=== PATIENT | male | born 1960 | race American Indian/Alaskan Native ===

== ENCOUNTER 2020-05-22 10:56 | Emergency (ER) | payer OTHER ==
[~2020-05-22] VITALS: Ht 182.9 cm; Wt 84.8 kg
[~2020-05-22 10:56] MED LIST: ANAPROX DS550 MG PO; CRESTOR10 MG PO; LISINOPRIL10 MG PO; METFORMIN HCL500 MG PO; NAPROXEN500 MG PO; NORCO 5-325 TA1 EACH PO; VICODIN 5-3001 EACH PO
[2020-05-22] MEDS ORDERED: HYDROCODON-ACE1 EA10 PO (13:43)
== END 2020-05-22 13:50 | disposition home or self-care (01) ==
LOC: ED 10:56
DX: S86.912A Strain of unspecified muscle(s) and tendon(s) at lower leg level, left leg, initial encounter (principal); W18.30XA Fall on same level, unspecified, initial encounter; E11.9 Type 2 diabetes mellitus without complications; Z91.030 Bee allergy status; Z79.899 Other long term (current) drug therapy; Z79.84 Long term (current) use of oral hypoglycemic drugs
CPT/HCPCS: 73590; 80048; 83735; 85025; 85379; 99283-25

== ENCOUNTER 2020-12-30 18:57 | Emergency (ER) | payer OTHER ==
[~2020-12-30] VITALS: Ht 180.3 cm; Wt 86.2 kg
[~2020-12-30 18:57] MED LIST changes: +HYDROCODON-ACE1 EA10 PO
[2020-12-30] MEDS ORDERED: DICLOFENAC SODI75 MG PO (19:53)
[2020-12-30] MEDS ORDERED: HYDROCODON-ACE1 EA10 PO (19:53)
== END 2020-12-30 20:24 | disposition home or self-care (01) ==
LOC: ED 18:57
DX: S83.92XA Sprain of unspecified site of left knee, initial encounter (principal); E11.9 Type 2 diabetes mellitus without complications; X58.XXXA Exposure to other specified factors, initial encounter; Z91.030 Bee allergy status
CPT/HCPCS: 73560; 99283-25

== ENCOUNTER 2021-09-27 17:54 | Emergency (ER) | payer OTHER ==
[~2021-09-27] VITALS: Ht 180.3 cm; Wt 89.8 kg
[~2021-09-27 17:54] MED LIST changes: +DICLOFENAC SODI75 MG PO; +ZESTRIL5 MG PO
--- OUTSIDE RECORDS SUMMARY | 2021-09-27 17:56 | XMS ---
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 Ting has no Care Guidelines for this patient. Ara VISIT COUNT (12 MO.) 2 [facility] Jhaveri TOTAL 2 NOTE: Visits indicate total known visits. ED/UCC VISIT TRACKING (12 MO.) 09/27/2021 17:54 [facility] TYPE: Emergency COMPLAINT: - SKIN PROBLEM 12/30/2020 18:[address] [facility] OR TYPE: Emergency COMPLAINT: - LT KNEE PAIN/NO INJURY DIAGNOSES: - Sprain of unspecified site of left knee, initial encounter - Exposure to other specified factors, initial encounter - Bee allergy status - Type 2 diabetes mellitus without complications - Pain in left knee INPATIENT VISIT TRACKING (12 MO.) No inpatient visits to display in this time frame [email or web address]
[2021-09-27] MEDS ORDERED: LIPITOR40 MG PO (18:56)
== END 2021-09-27 19:48 | disposition home or self-care (01) ==
LOC: ED 17:54
DX: S50.862A Insect bite (nonvenomous) of left forearm, initial encounter (principal); E11.9 Type 2 diabetes mellitus without complications; Z91.030 Bee allergy status; Z79.84 Long term (current) use of oral hypoglycemic drugs; Z79.899 Other long term (current) drug therapy; W57.XXXA Bitten or stung by nonvenomous insect and other nonvenomous arthropods, initial encounter
CPT/HCPCS: 99282

== ENCOUNTER 2022-03-15 16:53 | Emergency (ER) | payer OTHER ==
[~2022-03-15] VITALS: Ht 182.9 cm; Wt 90.9 kg
[~2022-03-15 16:53] MED LIST changes: +LIPITOR40 MG PO
--- OUTSIDE RECORDS SUMMARY | 2022-03-15 17:07 | XMS ---
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 CARE PROVIDERS There are no care providers on record at this time. Ting has no Care Guidelines for this patient. Ara VISIT COUNT (12 MO.) 2 JOCELYNE Jhaveri TOTAL 2 NOTE: Visits indicate total known visits. 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
[2022-03-15] MEDS ORDERED: CYCLOBENZAPRINE10 MG PO (18:24)
== END 2022-03-15 18:35 | disposition home or self-care (01) ==
LOC: ED 16:53
PROC: 3E023BZ Introduction of Anesthetic Agent into Muscle, Percutaneous Approach (ICD-10-PCS; principal; 2022-03-15)
DX: M62.838 Other muscle spasm (principal); M25.512 Pain in left shoulder; E11.9 Type 2 diabetes mellitus without complications; E78.5 Hyperlipidemia, unspecified; Z86.73 Personal history of transient ischemic attack (TIA), and cerebral infarction without residual deficits; Z91.030 Bee allergy status; Z79.899 Other long term (current) drug therapy; Z79.84 Long term (current) use of oral hypoglycemic drugs
CPT/HCPCS: 20552; 99283-25; J1100

== ENCOUNTER 2023-03-09 05:50 | Day surgery (SDC) | payer MEDICARE, OTHER ==
[~2023-03-09] VITALS: Ht 182.9 cm; Wt 86.0 kg
[~2023-03-09 05:50] MED LIST changes: +CYCLOBENZAPRINE10 MG PO
[2023-03-09 06:09] VITALS: BP 153/92
[2023-03-09] MEDS ORDERED: INVOKANA100 MG PO (06:23)
[2023-03-09] MEDS ORDERED: VITAMIN D350 MCG PO (06:24)
[2023-03-09] MEDS ORDERED: DICLOFENAC SODI75 MG PO (09:44)
[2023-03-09] MEDS ORDERED: HYDROCODON-ACE1 EA11 PO (09:44)
--- NOTE | 2023-03-09 09:55 | NUR ---
03/09/23 0955 Raquel Holliday PT TO PACU SLEEPY BUT AROUSABLE RESPONDS TO VERBAL STIMULI, DENIES PAIN AND NAUSEA.
--- NOTE | 2023-03-09 10:15 | NUR ---
PT ARRIVES TO UNIT VIA STRETCHER FROM PACU. PT IS A&O AND REPORTS NO PAIN OR NAUSEA AT THIS TIME. SURGICAL SITE DRESSING VISUALIZED W/JONI RN, SMALL AMOUNT OF RED SHADOWING. PT UNABLE TO LIFT EXTREMITY, CMS INTACT. SLING, CRYO CUFF, SCD'S IN PLACE AT THIS TIME. VS TAKEN. PT IS ON RA W/O2 >90%, GOOD COUGHS AT THIS TIME. SUGAR FREE JELLO AND DIET SODA PROVIDED, PT TOLERATING W/OUT DIFFICULTY SWALLOWING. CALL LIGHT WITHIN REACH, AT BEDSIDE, NO FURTHER NEEDS AT THIS TIME.
[2023-03-09 10:28] VITALS: BP 132/84
[2023-03-09 11:22] VITALS: BP 129/89
--- NOTE | 2023-03-09 12:09 | NUR ---
1126- PT ABLE TO SIT UP ON THE EDGE OF THE BED. PT REPORTS NO DIZZINESS, NAUSEA, OR PAIN. PT AMBULATED TO THE RESTROOM. 1131- PT ABLE TO URINATE. PT AMBULATES BACK TO HIS ROOM. PT STATES HE IS READY TO GET DRESSED TO GO HOME. PT ASSISTED WITH HIS SHIRT AND INSTRUCTED ON HOW TO ASSIST WITH PUTTING ON HIS SHIRT TO KEEP HIS LEFT SHOULDER IN A SAFE POSITION. 1142- PT FULLY DRESSED. DC INSTRUCTIONS PROVIDED TO PT AND PT'S . CRYOCUFF SENT HOME WITH PT. 1153- PT TAKEN TO THE FRONT OF THE HOSPITAL AND ASSISTED INTO THE PASSENGER SIDE OF THE VEHICLE.
--- NOTE | 2023-03-12 06:55 | OR ---
[facility] [address], [place] [address] Signed DATE OF OPERATION: 03/09/2023 SURGEON: Kia Holliday MD PREOPERATIVE DIAGNOSIS: Left shoulder biceps and labral tear. POSTOPERATIVE DIAGNOSES: 1. Left shoulder biceps and labral tear. 2. Partial rotator cuff tear. PROCEDURE PERFORMED: Left shoulder arthroscopy with subacromial decompression and debridement. TIRE RECAPPER: None. ANESTHESIA: General. BLOOD LOSS: Minimal. BRIEF HISTORY: Yasmany is a 62-year-old gentleman, who has had persistent shoulder pain despite nonoperative treatment including injections and physical therapy. The risks, benefits, and alternatives of surgery were discussed with him and he elected to proceed. DESCRIPTION OF PROCEDURE: Once consent was obtained, he was taken to the operating room. After adequate anesthesia, he was placed on the operating room bed in a beach chair position. All downside pressure points were well padded. He had his shoulder prepped and draped in a standard sterile fashion. Shoulder was injected with 15 mL of 0.25% Marcaine with epinephrine as was subacromial space. The standard posterior portal was made and the scope was introduced into the shoulder. ARTHROSCOPIC FINDINGS: The shoulder showed moderate synovitis throughout the superior and anterior superior aspects of the shoulder. The glenohumeral surfaces were intact. The labrum was frayed in a type 1 SLAP pattern with an unstable fragment anterior superiorly. The biceps Electronically Signed By: KAI HOLLIDAY MD 03/12/23 0655 PATIENT NAME: YASMANY MORALES OPERATIVE REPORT DATE OF : 62 REPORT #: [id number] PHYSICIAN: KAI HOLLIDAY MD PCP: MILTON SIMON REPORT IS CONFIDENTIAL AND NOT TO BE RELEASED WITHOUT AUTHORIZATION [facility] [address] [facility] [place], [place] [address] Signed anchor itself was intact. The biceps showed a 20% tear 3 cm from its attachment to the glenoid. There was very little tenosynovitis. The subacromial space showed mild thickening and bursitis but no superior rotator cuff tear. The undersurface of the supraspinatus just posterior to the biceps did show a minor tear. DESCRIPTION OF OPERATION: Standard anterior portal was made and diagnostic arthroscopy was undertaken as noted above. The biceps tissue was debrided as was the undersurface of the rotator cuff tear. The biceps was then measured to about 80% remaining. The labral attachment was intact. The fraying of the anterior labrum was then debrided. All synovitis was then debrided using the shaver. The scope was then withdrawn. Portals were closed with 3-0 nylon after brief subacromial bursoscopy. The bursa was removed using combination of the shaver and Mitek VAPR. The wounds were then dressed with Allevyn and Tegaderm. He was awakened, taken to the recovery room in satisfactory condition. All sponge, needle, and instrument counts were correct. Kai Holliday MD BA/AUGUSTOL /[id number] Copies: ~ Electronically Signed By: KAI HOLLIDAY MD 03/12/23 0655 PATIENT NAME: YASMANY MORALES OPERATIVE REPORT DATE OF : 62 REPORT #: [id number] PHYSICIAN: KAI HOLLIDAY MD PCP: MILTON SIMON REPORT IS CONFIDENTIAL AND NOT TO BE RELEASED WITHOUT AUTHORIZATION
== END 2023-03-09 11:53 | disposition home or self-care (01) ==
LOC: DS 05:50
PROVIDERS: ATTEND Specialist
PROC: 0RNK4ZZ Release Left Shoulder Joint, Percutaneous Endoscopic Approach (ICD-10-PCS; principal; 2023-03-09 08:30)
DX: S43.432A Superior glenoid labrum lesion of left shoulder, initial encounter (principal); M75.102 Unspecified rotator cuff tear or rupture of left shoulder, not specified as traumatic; M65.812 Other synovitis and tenosynovitis, left shoulder; E78.00 Pure hypercholesterolemia, unspecified; E11.9 Type 2 diabetes mellitus without complications; X58.XXXA Exposure to other specified factors, initial encounter
CPT/HCPCS: 01630; 64415; 76942; J0690; J1100; J1885; J2001; J2250; J2405; J2704; J2795; J7121

== ENCOUNTER 2024-09-08 11:14 | Inpatient (IN) | payer OTHER, MEDICARE ==
[~2024-09-08] VITALS: Ht 182.9 cm; Wt 94.7 kg
[~2024-09-08 11:14] MED LIST changes: +HYDROCODON-ACE1 EA11 PO; +INVOKANA300 MG PO; -LIPITOR40 MG PO; +LIPITOR80 MG PO; +VITAMIN D325 MCG PO
[2024-09-08] MEDS ORDERED: METFORMIN HCL1000 M2 PO (11:28)
[2024-09-08] MEDS ORDERED: JANUMET 50-1,01 EACH PO (11:29)
[2024-09-08] MEDS ORDERED: VITAMIN B121000 MCG PO (11:30)
[2024-09-08] MEDS ORDERED: GLIMEPIRIDE1 MG PO (11:31)
[2024-09-08 12:02] LABS: BASOPHILS 0.5 % (0.2-1.2); EOSINOPHILS 0.4 % (0.8-7.0); LYMPHOCYTES 5.9 % (21.8-53.1); MCH 31.2 PG (25.7-32.2); MCHC 32.8 g/dL (32.3-36.5); MCV 95.2 fL (79.0-92.2); MONOCYTES 6.8 % (5.3-12.2); NEUTROPHILS 85.9 % (34.0-67.9); RBC 4.20 M/uL (4.63-6.08)
[2024-09-08 12:22] LABS: LACTIC ACID, BLOOD 2.1 mmol/L (0.4-2.0)
[2024-09-08 12:23] LABS: ALT (SGPT) 26.0 U/L (14-59); AST (SGOT) 16.0 U/L (15-37); GLOMERULAR FILTRATION RATE,EST 101.0 mL/min (>60); PROTEIN, TOTAL 7.6 g/dL (6.4-8.2); UREA NITROGEN 9.0 mg/dL (7-18)
[2024-09-08] MEDS ORDERED: SODIUM CHLORIDE 0.9% 1,000 ML IV PRN (12:45)
[2024-09-08] MEDS ORDERED: THIAMINE HCL 200 MG/2 ML VIAL IV SCH (13:58)
[2024-09-08] MEDS ORDERED: FOLIC ACID 1 MG/0.2 ML ML IV SCH (13:58)
[2024-09-08] MEDS ORDERED: DEXTROSE 5% 1,000 ML IV PRN (14:00)
[2024-09-08] MEDS ORDERED: GLUCAGON,HUMAN RECOMBINANT 1 MG/ML VIAL SUB-Q PRN (14:00)
[2024-09-08] MEDS ORDERED: IBLOOD GLUCOSE TEST STRIP 1 EA TEST XX PRN (14:00)
[2024-09-08] MEDS ORDERED: ACETAMINOPHEN 325 MG TAB PO PRN (14:00)
[2024-09-08] MEDS ORDERED: DEXTROSE 50% 50 ML SYR IV PRN ×2 (14:00)
[2024-09-08] MEDS ORDERED: PIPERACILLIN/TAZOBACTAM 4.5 GM in SODIUM CHLORIDE 0.9% 100 ML IV SCH (14:00)
[2024-09-08] MEDS ORDERED: LORazepam 2 MG/ML VIAL IV/IM PRN (14:00)
[2024-09-08 14:03] LABS: LACTIC ACID, BLOOD 1.4 mmol/L (0.4-2.0)
[2024-09-08 14:30] VITALS: BP 137/76
--- NOTE | 2024-09-08 14:51 | NUR ---
PATIENT ADMITTED TO MED SURG. PATIENT RATES LEFT FOOT PAIN 08/14. LEFT FOOT IS ELEVATED ON 2 PILLOWS. IV ZOSYN INFUSING FOR 4 HOURS. AFTERNOON MEDS GIVEN. NO OTHER NEEDS AT THIS TIME.
[2024-09-08 15:30] VITALS: BP 137/76
[2024-09-08] MEDS ORDERED: INSULIN LISPRO 100 UNIT/ML ML SUB-Q SCH (17:00)
[2024-09-08] MEDS ORDERED: IBLOOD GLUCOSE TEST STRIP 1 EA TEST VI SCH (17:00)
[2024-09-08 17:09] LABS: BLOOD/HGB, URINE NEGATIVE (Negative); KETONE, URINE NEGATIVE (Negative); LEUK ESTERASE, URINE NEGATIVE (negative); NITRITE, URINE NEGATIVE (negative)
--- NOTE | 2024-09-08 17:18 | NUR ---
PATIENT BG IS 147, HE DOES NOT WANT THE ONE UNIT SLIDING SCALE AT THIS TIME. NO OTHER NEEDS AT THIS TIME.
[2024-09-08 17:45] VITALS: BP 119/64; BP 99/58
--- NOTE | 2024-09-08 17:49 | NUR ---
PATIENT IS LAYING IN BED. PATIENTS VITAL SIGNS AND I&OS WERE TAKEN. PATIENTS CALL LIGHT IS WITHIN REACH AND NOT FUTHER NEEDS AT THIS TIME.
[2024-09-08] MEDS ORDERED: IBUPROFEN 600 MG TAB PO PRN (19:15)
--- NOTE | 2024-09-08 19:45 | NUR ---
PT ALERT IN BED, SUPPORTIVE AND DOG AT BEDSIDE. PT RATES PAIN OF FOOT AT 6/10. CALL LIGHT IN REACH
[2024-09-08 20:12] VITALS: BP 96/56
[2024-09-08 20:19] VITALS: BP 96/56
--- NOTE | 2024-09-08 20:34 | NUR ---
VITALS, EVENING ASSESSMENT. L FOOT REDNESS AND SWELLING CONSIDERABLY IMPROVED FROM PREVIOUS MARKING, AND PER PT. GIVEN PRN MOTRIN FOR 6/10 PAIN WELL ICE PACK. ORIENTED TO PLAN OF CARE. REFRESHED ICE WATER. SUPPORTIVE AND DOG IN ROOM. CALL LIGHT IN REACH
--- NOTE | 2024-09-08 21:22 | NUR ---
GIVEN MUSTARD ON PT REQUEST FOR LEG CRAMPS. PAIN UNCHANGED AFTER MOTRIN AND ICE. NO OTHER NEEDS CALL [facility] IN REACH
--- NOTE | 2024-09-08 22:46 | NUR ---
ADMINISTERED IV ABX, BLOOD SUGAR 109. PT REPORTS PAIN MILDLY IMPROVED FROM MOTIRN, THOUGH STILL RATES 5/10. NO OTHER NEEDS PRESENTLY, SUPPORTIVE AND DOG IN BEDROOM. CALL LIGHT IN REACH
[2024-09-09] VITALS (9 sets, daily range): BP systolic 97–125; BP diastolic 56–77
--- NOTE | 2024-09-09 00:37 | NUR ---
PT RESTING IN BED WTIH EYES CLOSED, RISE ADN FALL OF CHEST OBSERVED. CALL LIGHT IN REACH
--- NOTE | 2024-09-09 02:42 | NUR ---
PT RESTING IN BED WITH EYES CLOSED, RISE AND FALL OF CHEST OBSERVED. CALL LIGHT IN REACH, SUPPORTIVE AND DOG IN ROOM.
--- NOTE | 2024-09-09 04:22 | NUR ---
PT RESTING IN BED, SAYS "I'M OKAY" WHEN OPENED DOOR. NO OTHER NEEDS, CALL [facility]
[2024-09-09 05:36] LABS: BASOPHILS 0.5 % (0.2-1.2); EOSINOPHILS 1.2 % (0.8-7.0); LYMPHOCYTES 8.2 % (21.8-53.1); MCH 32.2 PG (25.7-32.2); MCHC 33.3 g/dL (32.3-36.5); MCV 96.6 fL (79.0-92.2); MONOCYTES 8.7 % (5.3-12.2); NEUTROPHILS 80.9 % (34.0-67.9); RBC 3.79 M/uL (4.63-6.08)
[2024-09-09 05:45] LABS: GLOMERULAR FILTRATION RATE,EST 99.0 mL/min (>60); UREA NITROGEN 11.0 mg/dL (7-18)
--- NOTE | 2024-09-09 07:24 | NUR ---
MORNING REPORT RECIEVED FROM KATIE VAZQUEZ. PT SITTING UP IN BED AT THIS TIME, PT DENIES NEEDS AT THIS TIME, PT CALL LIGHT IN REACH CURRENTLY WITH SITTING IN ROOM AT PT BEDSIDE.
--- NOTE | 2024-09-09 07:32 | NUR ---
HOURLY ROUNDING. PATIENT BLOOD SUGAR WAS CHECKED AND DOCUMENTED. NO REQUEST FROM PATIENT AT THIS TIME. IS AT BEDSIDE CALL LIHT PLACED WITHIN REACH
[2024-09-09] MEDS ORDERED: MULTIVITAMINS THERAPEUTIC 1 EA TAB PO SCH (08:00)
--- NOTE | 2024-09-09 08:55 | NUR ---
UR CLINICAL REVIEW: FRANCIS, MEETS INPT FOR CELLULITIS IV ANTIBIOTICS Q 8 HRS, TREND LABS, ELEVATED LACTIC ACID 2.1, WOUND PACKING IN PLACE WITH NEED TO MONITOR SITE, PT CONSULT [facility]/MEDICARE INPT 09/08/24 @ 1353 ORDER MATCHES REG NO AUTH NEEDED PER MEDICARE RULES PLAN TO DC TO HOME WHEN MEDICALLY READY.
[2024-09-09] MEDS ORDERED: ENOXAPARIN SODIUM 40 MG/0.4 ML SYR SUB-Q SCH (09:00)
--- NOTE | 2024-09-09 09:24 | NUR ---
HOURLY ROUNDING. PATIENT SITTING IN BED, IS AT BEDSIDE. NO REQUEST FROM PATIENT AT THIS TIME. HE REPORTS HIS FOOT FEELS WAY BETTER THAN LAST NIGHT
--- NOTE | 2024-09-09 10:20 | NUR ---
Spoke with Michel. [place] step into the home. He does not use any DME. They both drive. They deny financial or safety issues. Pt has an appointment with Janey Morales screen printing machine operator at [facility] on 09/15/24 at 0845. Pt. and denies needs at this time. Home when cleared medically.
--- NOTE | 2024-09-09 10:37 | NUR ---
PT SITTING UP IN BED, IS PRESENT AT PT BEDSIDE, PT TOLERATED DRESSING CHANGE ON LEFT FOOT WELL AND NO DRAINAGE PRESENT IN WOUND. PACKING REMOVED AND WOUND CLEANSER APPLIED WITH BACITRACIN 2X2 GAUZE AND ABD PAD. PT HAS NO CURRENT CONCERNS AND HAS CALL LIGHT IN REACH.
[2024-09-09] MEDS ORDERED: PHARMACY RENAL DOSE ADJUSTMENT 1 DOSE MISC PO SCH (12:00)
--- NOTE | 2024-09-09 12:20 | NUR ---
PATIENT'S BLOOD GLUCOSE IS 86, NO INSULIN WITH LUNCH.
--- NOTE | 2024-09-09 12:52 | NUR ---
HOURLY ROUNDING. PATIENT LAYING IN BED, HE REPORTS HAVING A GOOD LUNCH. NO REQUEST FROM PATIENT AT THIS TIME. CALL LIGHT PLACED WITHIN REACH
--- NOTE | 2024-09-09 13:18 | NUR ---
PT SITTING UP ON SIDE OF BED, PT DENIES PAIN AT THIS TIME AND STATES " THEIR FOOT FEELS ALOT BETTER TODAY", PT HAS IN ROOM AND CALL LIGHT IN REACH AT THIS TIME.
--- NOTE | 2024-09-09 14:22 | NUR ---
VISITED DURING SPIRITUAL CARE ROUNDS. PT SUPPORTED BY AND DOG IN ROOM. BOTH IN OVERALL GOOD SPIRITS, NO IMMEDIATE NEEDS. DIRECTOR RECORDS MANAGEMENT PROVIDED SUPPORTIVE PRESENCE, HOSPITALITY, PRAYER, FACILITATED INTERACTION WITH THERAPY ANIMAL. PT AND EXPRESSED GRATITUDE, HOPE.
--- NOTE | 2024-09-09 15:55 | NUR ---
PT CURRENTLY SITTING UP IN CHAIR AT THIS TIME. PT HAS NO CURRENT NEEDS AND DENIES PAIN AT THIS TIME CALL LIGHT IN REACH.
--- NOTE | 2024-09-09 16:39 | NUR ---
HOURLY ROUNDING. PATIENT SITTING IN BED, REQUEST CRAN JUICE AND ICE. WHICH WAS GIVEN. NO FURTHER REQUEST FROM PATIENT AT THIS TIME
--- NOTE | 2024-09-09 17:15 | NUR ---
PT SITTING UP IN BED AT THIS TIME, PT DENIES PAIN AND STATES " THEIR FOOT IS FEELING ALOT BETTER AT THIS TIME". PT HAS CALL LIGHT IN REACH.
--- NOTE | 2024-09-09 18:33 | NUR ---
PT SITTING UP IN CHAIR EATING DINNER, PT DENIES PAIN AT THIS TIME AND HAS CALL LIGHT IN REACH. PT IS BACK IN ROOM AND ALSO DENIES NEEDS.
--- NOTE | 2024-09-09 19:23 | NUR ---
RECEIVED REPORT. PT ALERT IN BED, SUPPORTIVE AT BEDSIDE. PT REPORTS MILD PAIN, REQUESTS PAIN MEDICATION IN ABOUT 1 HOUR. NO OTHER NEEDS FOR NOW, CALL LGT IN REACH
--- NOTE | 2024-09-09 21:08 | NUR ---
VITALS, ASSESSMENT. GIVEN PRUNE JUICE D/T NO BM FOR 2 DAYS. TYLENOL 650MG FOR L FOOT PAIN 07/15. SUPPORTIVE AND DOG IN ROOM, CALL LGT IN REACH
--- NOTE | 2024-09-09 21:52 | NUR ---
ADMINISTERED IV ZOSYN, GIVEN MOTRIN PRN FOR 5/10 MILDLY IMPROVED BY TYLENOL. REFRESHED ICE WATER. NO OTHER NEEDS, CALL LIGHT IN REACH
--- NOTE | 2024-09-09 23:33 | NUR ---
PT ALERT IN BED, NO NEEDS FOR NOW. CALL LIGHT IN REACH
[2024-09-10 01:06] VITALS: BP 96/57
[2024-09-10 01:07] VITALS: BP 96/57
--- NOTE | 2024-09-10 01:41 | NUR ---
RESPONDED TO BEEPING IV. DISCONNECTED ZOSYN. PT AWAKE, THOUGH QUICKLY BACK ASLEEP. NO NEEDS, [facility]
--- NOTE | 2024-09-10 04:04 | NUR ---
PT RESTING IN BED WITH EYES CLOSED, RISE AND FALL OF CHEST OBSERVED. CALL LIGHT IN REACH
[2024-09-10 05:27] LABS: BASOPHILS 0.8 % (0.2-1.2); EOSINOPHILS 2.7 % (0.8-7.0); LYMPHOCYTES 12.6 % (21.8-53.1); MCH 32.0 PG (25.7-32.2); MCHC 33.0 g/dL (32.3-36.5); MCV 97.1 fL (79.0-92.2); MONOCYTES 9.4 % (5.3-12.2); NEUTROPHILS 74.0 % (34.0-67.9); RBC 4.09 M/uL (4.63-6.08)
[2024-09-10 05:37] LABS: GLOMERULAR FILTRATION RATE,EST 99.0 mL/min (>60); UREA NITROGEN 11.0 mg/dL (7-18)
[2024-09-10 05:40] VITALS: BP 129/69
--- NOTE | 2024-09-10 06:28 | NUR ---
VITALS, IV ABX INITIAED. PROVIDED COFFEE. RE-DRESSED IV. NO OTHER NEEDS, CALL LIGHT IN REACH
--- NOTE | 2024-09-10 07:16 | NUR ---
MORNING REPORT RECIEVED FROM KATIE VAZQUEZ. PT HAD NO ACUTE EVENTS OVERNIGHT, AND REDNESS IN THE PT LEFT FOOT HAS DECREASED SINCE YESTERDAY. THE PT IS CURRENTLY SITTING UP IN BED AT THIS TIME AND DENIES PAIN AND ANY NEEDS. CALL LIGHT CURRENTLY IN REACH.
[2024-09-10] MEDS ORDERED: FOLIC ACID 1 MG TAB PO SCH (08:00)
[2024-09-10] MEDS ORDERED: THIAMINE HCL 100 MG TAB PO SCH (08:00)
--- NOTE | 2024-09-10 09:09 | NUR ---
PT SITTING UP IN BED AT THIS TIME, PT REDNESS ON LEFT FOOT HAS DECREASED AND PT PAIN HAS NEARLY RESOLVED. PT HAS NO CURRENT CONCERNS AT THIS TIME AND HAS CALL LIGHT IN REACH AT THIS TIME.
[2024-09-10 09:40] VITALS: BP 143/73
--- NOTE | 2024-09-10 09:53 | NUR ---
medications reconciled using pharmacy records and patient interview
--- NOTE | 2024-09-10 09:58 | NUR ---
PT SITTING UP IN BED AT THIS TIME, PT IS CURRENTLY IN ROOM AND PT DENIES PAIN AT THIS TIME. PT HAS CALL LIGHT IN REACH CURRENTLY.
[2024-09-10 10:00] VITALS: BP 143/73
[2024-09-10] MEDS ORDERED: BACTRIM DS TAB1 EACH PO (11:16)
[2024-09-10] MEDS ORDERED: CIPROFLOXACIN750 MG PO (11:16)
--- NOTE | 2024-09-10 11:23 | NUR ---
PT SPOKE WITH MD GONZALEZ AND WILL BE DC'D TODAY. PT SITTING UP IN BED, PT DRESSING WAS CHANGED ON PT LEFT FOOT. PT TOLERATED WELL AND WAS EDUCATED ON HOW TO CLEAN AND DRESS PT WOUND AT HOME, ALL QUESTIONS WERE ANSWERED AND SUPPLIES WERE PROVIDED FOR HOME CARE.
[2024-09-10 12:09] VITALS: BP 156/90
== END 2024-09-10 12:15 | disposition home or self-care (01) | DRG 872 ==
LOC: ED 11:14 → MS 13:53
PROVIDERS: Emergency Medicine; ADMIT Student in an Organized Health Care Education/Training Program; ATTEND Student in an Organized Health Care Education/Training Program
DX: A41.9 Sepsis, unspecified organism (principal); L03.116 Cellulitis of left lower limb; E87.1 Hypo-osmolality and hyponatremia; E87.20 Acidosis, unspecified; E11.9 Type 2 diabetes mellitus without complications; I10 Essential (primary) hypertension; E78.5 Hyperlipidemia, unspecified; F10.90 Alcohol use, unspecified, uncomplicated; Z79.84 Long term (current) use of oral hypoglycemic drugs; Z79.899 Other long term (current) drug therapy; Z86.73 Personal history of transient ischemic attack (TIA), and cerebral infarction without residual deficits; Z98.890 Other specified postprocedural states; Z91.030 Bee allergy status
CPT/HCPCS: 36415; 73630; 80048; 80053; 81003; 83605; 83735; 85025; 96365; 97161; 99284-25; A9270; J0696; J1650; J2543; J3411; J7030

== ENCOUNTER 2024-09-13 10:58 | Emergency (ER) | payer OTHER, MEDICARE ==
[~2024-09-13] VITALS: Ht 182.9 cm; Wt 94.7 kg
[~2024-09-13 10:58] MED LIST changes: +BACTRIM DS TAB1 EACH PO; +CIPROFLOXACIN750 MG PO; +GLIMEPIRIDE1 MG PO; +JANUMET 50-1,01 EACH PO; +METFORMIN HCL1000 M2 PO; +VITAMIN B121000 MCG PO
--- OUTSIDE RECORDS SUMMARY | 2024-09-13 11:05 | XMS ---
PreManage Notification: YASMANY MORALES Security Imcu Specialist Events No recent Security Events currently on file CRITERIA MET - [facility] - 2 Visits in 30 Days CARE PROVIDERS [facility] 09/10/2024-[facility] \F\ <UNAVAIL> PHONE: [phone] Ting has no Care Guidelines for this patient. Ara VISIT COUNT (12 MO.) [address] [facility] TOTAL 2 NOTE: Visits indicate total known visits. ED/UCC VISIT TRACKING (12 MO.) 09/13/2024 10:59 [facility] TYPE: Emergency COMPLAINT: - WOUND CHECK 09/08/2024 11:15 [facility] TYPE: Emergency COMPLAINT: - IV THERAPY INPATIENT VISIT TRACKING (12 MO.) 09/08/2024 13:53 [facility] TYPE: Medical Surgical COMPLAINT: - LEFT FOOT CELLULITIS DIAGNOSES: - Acidosis, unspecified - Acidosis, unspecified - Alcohol use, unspecified, uncomplicated - Alcohol use, unspecified, uncomplicated - Bee allergy status - Bee allergy status - Cellulitis of left lower limb - Cellulitis of left lower limb - Cellulitis of left lower limb - Essential (primary) hypertension - Essential (primary) hypertension - Hyperlipidemia, unspecified - Hyperlipidemia, unspecified - Hypo-osmolality and hyponatremia - Hypo-osmolality and hyponatremia - 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 - 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 - Other met[place] (current) drug therapy - Other shelter (current) drug therapy - Other specified postprocedural states - Other specified postprocedural states - Pain in left lower leg - Personal history of transient ischemic attack (TIA), and cerebral infarction without residual deficits - Personal history of transient ischemic attack (TIA), and cerebral infarction without residual deficits - Sepsis, unspecified organism - Sepsis, unspecified organism - Type 2 diabetes mellitus without complications - Type 2 diabetes mellitus without complications [email or web address]
[2024-09-13 11:53] LABS: BASOPHILS 0.8 % (0.2-1.2); EOSINOPHILS 2.9 % (0.8-7.0); LYMPHOCYTES 15.8 % (21.8-53.1); MCH 31.6 PG (25.7-32.2); MCHC 33.5 g/dL (32.3-36.5); MCV 94.2 fL (79.0-92.2); MONOCYTES 10.2 % (5.3-12.2); NEUTROPHILS 69.7 % (34.0-67.9); RBC 4.15 M/uL (4.63-6.08)
[2024-09-13 13:36] VITALS: BP 107/72
== END 2024-09-13 13:36 | disposition home or self-care (01) ==
LOC: ED 10:58
PROVIDERS: Emergency Medicine
DX: L03.116 Cellulitis of left lower limb (principal); I10 Essential (primary) hypertension; E11.9 Type 2 diabetes mellitus without complications; E78.5 Hyperlipidemia, unspecified; Z91.030 Bee allergy status; Z88.8 Allergy status to other drugs, medicaments and biological substances; Z79.84 Long term (current) use of oral hypoglycemic drugs; Z79.899 Other long term (current) drug therapy
CPT/HCPCS: 36415; 73700; 85025; 96374; 99283-25; J0696; Q9967